=== PATIENT | female | born 2000 | race African-American/Black ===

== ENCOUNTER 2022-04-05 06:28 | Emergency (ER) | payer OTHER, SELFPAY ==
[2022-04-05 06:36] VITALS: BP 112/73; PULSE 79; RESP 19; TEMP 36.6; O2SAT 100
[2022-04-05] MEDS: AMOXICILLIN/CLAVULANATE K 875-125 MG TAB 1 TABLET PO (06:46)
--- NOTE | 2022-04-05 06:46 | ED.DENTAL ---
HPI - Dental/Oral General Chief complaint: Dental/Oral Stated complaint: tooth ache/swelling Time Seen by Provider: 04/05/22 06:33 History of Present Illness HPI Narrative: 21-year-old female presented the emergency department for evaluation of dental pain. Patient states that every few months she seems to have recurring dental pain. Patient states over the last 2 days she has had worsening left lower posterior dental pain. Patient is new to the area and does not yet have a dentist or primary care physician. Review of Systems Review of Systems: CONSTITUTIONAL: Denies fever, chills, or sweats. EYES: Denies visual changes, redness, or discharge. ENT: See HPI CARDIOVASCULAR: Denies chest pain, palpitations, or edema. RESPIRATORY: Denies cough or dyspnea. GASTROINTESTINAL: Denies abdominal pain, nausea, vomiting, or diarrhea. GENITOURINARY: Denies dysuria or hematuria. SKIN: Denies rash or itching. MUSCULOSKELETAL: Denies back pain, joint pain, or myalgia. NEUROLOGIC: Denies headache, numbness, or weakness. Exam Narrative: APPEARANCE: Well appearing, no pain, no distress, well-nourished. HEAD: normocephalic, atraumatic. EYES: PERRLA/EOMI, conjunctivae clear. NOSE: Normal no drainage EARS:TMS clear with good light reflex. THROAT: Pharynx clear, no exudate. Patient does appear to have wisdom teeth coming in on the left lower. No abscess amenable to drainage NECK: Supple. No adenopathy, no masses. RESPIRATORY: Airway patent, respirations nonlabored. Clear to auscultation bilaterally, no rales, rhonchi, wheezing. CARDIOVASCULAR: Regular rate and rhythm without murmurs rubs or gallops. ABDOMINAL: Soft, nontender, nondistended, normal bowel sounds MUSCULOSKELETAL: Moves all extremities. Strength/ROM intact, No edema, No calf tenderness. NEURO: Alert. Cranial nerves II through XII intact. Grossly intact SKIN: Warm, dry. Normal Color Course Course Emergency Course: Patient was started on antibiotics in the emergency room. Patient was also encouraged of close follow-up with a dentist. All question concerns were addressed. Patient was well-appearing at discharge. Vital Signs Vital signs: Vital Signs Temperature 97.8 F 04/05/22 06:36 Pulse Rate 79 04/05/22 06:36 Respiratory Rate 19 04/05/22 06:36 Blood Pressure 112/73 04/05/22 06:36 Pulse Oximetry 100 04/05/22 06:36 Oxygen Delivery Room Air 04/05/22 06:36 Temperature 97.8 F 04/05/22 06:36 Pulse Rate 79 04/05/22 06:36 Respiratory Rate 19 04/05/22 06:36 Blood Pressure 112/73 04/05/22 06:36 Pulse Oximetry 100 04/05/22 06:36 Oxygen Delivery Room Air 04/05/22 06:36 MDM - Dental/Oral Lab Data Labs: Lab Results 04/05/22 Range/Units 06:49 Hep Bs Antibody Positive Discharge Plan Discharge Clinical Impression: Toothache Patient Disposition: Home, Self-Care Condition: Stable Instructions: Antibiotic Form, Toothache (ED) Additional Instructions: Tylenol and ibuprofen for pain control. Antibiotic as directed. Have close follow-up with a dentist. If you have any worsening symptoms then please call or return to the emergency department. Prescriptions: New amoxicillin-pot clavulanate 875-125 mg tablet 1 tablet PO Q12H Qty: 14 0RF Follow-up/Referrals: Taye Santos, MYRAC [Primary Care Provider] -
[2022-04-05 10:50] LABS: Hepatitis B Surface Antibody > 1000.00 s/c
[2022-04-05 11:49] LABS: Hepatitis B Surface Anti Res Positive
== END 2022-04-05 07:12 | disposition home or self-care (01) ==
PROVIDERS: Emergency Provider Emergency Medicine; PCP Physician Assistant
DX: K08.89 Other specified disorders of teeth and supporting structures (principal)
CPT/HCPCS: 36415; 86706; 99283; A9270

== ENCOUNTER 2023-09-30 12:45 | Outpatient (CLI) | payer OTHER, SELFPAY ==
--- NOTE | ~2023-09-30 | US_ITS ---
EXAMINATION: US transvaginal DATE: 09/30/2023 13:26 INDICATION: Pelvic pain Comparison:No prior studies for comparison. TECHNIQUE: Multiple endovaginal sonographic images of the pelvis performed. FINDINGS: The uterus measures 7.4 x 3 x 5 cm. The endometrial complex measures 7 mm. The right ovary measures 3.6 x 1.5 x 2.7 cm and the left ovary measures 3.3 x 2.2 x 2.9 cm. There ar e small follicles in each ovary. There is a left ovarian cyst measuring 2.3 cm. Normal doppler signal in both ovaries. There is free fluid in the pelvis. There are no abnormal masses seen on either side. IMPRESSION: 1. Left ovarian cyst measuring 2.3 cm. Reviewed, dictated and finalized at location B.
== END 2023-09-30 12:46 | disposition home or self-care (01) ==
LOC: ANHIMG 12:47
PROVIDERS: PCP Physician Assistant; Visit Provider Obstetrics & Gynecology Gynecology
DX: R10.2 Pelvic and perineal pain (principal); N83.202 Unspecified ovarian cyst, left side
CPT/HCPCS: 76830

== ENCOUNTER 2024-06-14 17:02 | Emergency (ER) | payer OTHER, SELFPAY ==
[2024-06-14 17:14] VITALS: BP 126/80; PULSE 88; RESP 16; TEMP 36.7; O2SAT 100
--- NOTE | 2024-06-14 17:18 | ED.ABDPAIN ---
HPI - Abdominal Pain General Chief Complaint: Abdominal Pain <JAYANT Sebastian Last Filed: 06/14/24 17:26> Stated Complaint: nausea, cramps <JAYANT Sebastian Last Filed: 06/14/24 17:26> Time Seen by Provider: 06/14/24 17:18 <JAYANT Sebastian Last Filed: 06/14/24 17:26> Focused HPI: Patient is a 23 y/o female who presents to the ED with c/o lower abdominal cramping. Patient reports she was supposed to start her normal menstrual cycle on 05/31 but has not yet. Typically has regular menstrual cycles. Has taken to at home test which were both negative. She was referred to the ED by her OBGYN, Dr. Mcmahan, to have blood test. She has never been before. Has been feeling intermittently nauseous since end of May, began having some lower abdominal cramping last week. Denies dysuria, hematuria, any vaginal spotting. Denies vomiting, diarrhea. GENERAL: Well-appearing, well-nourished, and in no acute distress. HEAD: Normocephalic, atraumatic. CHEST: Clear to auscultation. ?No respiratory distress. HEART: Regular rate and rhythm.? ABD: Mild TTP in lower abdomen/suprapubic region. NEURO: ?Alert and oriented x3. Patient screened in triage and initial orders placed.? ?Additional care and disposition to be based upon?diagnostic testing and treatment. <JAYANT Sebastian Last Filed: 06/14/24 17:26> Source: patient <JAYANT Sebastian Last Filed: 06/14/24 17:26> Mode of arrival: ambulatory <JAYANT Sebastian Last Filed: 06/14/24 17:26> Limitations: no limitations <JAYANT Sebastian Last Filed: 06/14/24 17:26> History of Present Illness HPI narrative: Agree with the above triage note. Has been sexually active with 1 partner for the past 6 months. Denies vaginal discharge or concern for STDs. Denies focal abdominal pain. Is reporting intermittent diffuse lower abdominal cramping. <Nicol Kong PA-C - Last Filed: 06/14/24 19:43> Related Data Allergies/Adverse Reactions: Allergies Allergy/AdvReac Type Severity Reaction Status Date / Time No Known Allergies Allergy Verified 06/14/24 17:18 <Alia Ruano PA-C - Last Filed: 06/14/24 17:26> Review of Systems Review of Systems: All systems reviewed & are unremarkable except as noted in HPI and below <JAYANT Flanagan Last Filed: 06/14/24 19:43> Exam Narrative: GENERAL: Well-appearing, well-nourished, and in no acute distress. HEAD: Normocephalic, atraumatic. EYES: EOMI. ENT: Nares clear, no rhinorrhea or epistaxis. Mucous membranes moist. NECK: Supple. CHEST: Clear to auscultation. No respiratory distress. HEART: Regular rate and rhythm. No murmur heard. Normal peripheral pulses. ABDOMEN: Soft, nontender, nondistended, normal active bowel sounds. No CVA tenderness EXTREMITIES: Normal range of motion. No edema. SKIN: Warm, dry, no rash. NEURO: No focal deficits. Alert and oriented x3 <JAYANT Flanagan Last Filed: 06/14/24 19:43> Course Vital Signs Vital signs: Vital Signs Temperature 98.0 F 06/14/24 17:14 Pulse Rate 88 06/14/24 17:14 Respiratory Rate 16 06/14/24 17:14 Blood Pressure 126/80 06/14/24 17:14 Pulse Oximetry 100 06/14/24 17:14 Oxygen Delivery Room Air 06/14/24 17:14 Temperature 98.0 F 06/14/24 17:14 Pulse Rate 88 06/14/24 17:14 Respiratory Rate 16 06/14/24 17:14 Blood Pressure 126/80 06/14/24 17:14 Pulse Oximetry 100 06/14/24 17:14 Oxygen Delivery Room Air 06/14/24 17:14 <JAYANT Sebastian Last Filed: 06/14/24 17:26> Vital Signs Temperature 98.0 F 06/14/24 17:14 Pulse Rate 88 06/14/24 17:14 Respiratory Rate 16 06/14/24 17:14 Blood Pressure 126/80 06/14/24 17:14 Pulse Oximetry 100 06/14/24 17:14 Oxygen Delivery Room Air 06/14/24 17:14 Temperature 98.0 F 06/14/24 17:14 Pulse Rate 88 06/14/24 17:14 Respiratory Rate 16 06/14/24 17:14 Blood Pressure 126/80 06/14/24 17:14 Pulse Oximetry 100 06/14/24 17:14 Oxygen Delivery Room Air 06/14/24 17:14 <Nicol Kong PA-C - Last Filed: 06/14/24 19:43> MDM - Abdominal Pain MDM Narrative Medical decision making narrative: MSE by SHIRA in triage. <JAYANT Sebastian Last Filed: 06/14/24 17:26> MSE by SHIRA in triage. 23-year-old female presents to emergency department for missed. . Patient reportedly has regular cycles, was supposed to start her period on 05/31/2024. Referred to the ED to obtain a blood test by her OBGYN. Abdomen is soft and nontender. Lab work here is unremarkable. Beta hCG is negative. UA without infection. Patient was updated on workup. Discussed other etiologies of lower abdominal cramping such as GI etiology, ovarian cyst, ovarian torsion, etc.. Very low suspicion for ovarian torsion or acute abdomen given she is resting very comfortably in exam bed with no abdominal tenderness on exam. Shared decision making regarding further workup including CT abdomen pelvis and pelvic ultrasound. Patient would like to defer further workup today and feels safe to discharge home with close follow-up with her OBGYN. She was given return precautions. Zofran sent to pharmacy for nausea. Patient is agreeable with the plan verbalized understanding. Discharged in stable condition. <Nicol Kong PA-C - Last Filed: 06/14/24 19:43> Lab Data Result diagrams: 06/14/24 18:35 06/14/24 18:35 <JAYANT Sebastian Last Filed: 06/14/24 17:26> Labs: Lab Results 06/14/24 06/14/24 Range/Units 17:29 18:35 WBC 8.8 (4.5-10.0) K/mm3 RBC 4.06 L (4.2-5.4) M/mm3 Hgb 12.5 (12.0-15.0) g/dL Hct 37.7 (37.0-47.0) % MCV 92.9 (80-100) fl MCH 30.8 (26-34) pg MCHC 33.2 (32-36) g/dl RDW 12.3 (11.5-14.5) % Plt Count 151 (150-375) k/mm3 MPV 12.4 H (7.4-10.4) fl Immature Gran % (Auto) 0.2 (0-0.5) % Neut % (Auto) 54.0 (45.5-73.1) % Lymph % (Auto) 37.3 (18.3-44.2) % [place] % (Auto) 7.4 (2.6-8.5) % Eos % (Auto) 0.6 (0-4.4) % Baso % (Auto) 0.5 (0.2-1.2) % Lymph # (Auto) 3.28 H (0.9-3.2) K/mm3 [place] # (Auto) 0.7 H (0.1-0.6) K/mm3 Eos # (Auto) 0.1 (0-0.3) K/mm3 Baso # (Auto) 0.0 (0.0-0.1) K/mm3 Abs Immat Gran (auto) 0.02 (0.00-0.031) K/mm3 Absolute Neuts (auto) 4.8 (1.3-6.7) K/mm3 Absolute Nucleated RBC 0.000 (0.0-0.012) K/mm3 Nucleated RBC % 0.0 (0.0-0.2) % PT 14.1 (11.1-14.7) Seconds INR 1.0 APTT 35.0 (22.3-36.8) Seconds Sodium 138 (137-145) mmol/L Potassium 3.9 (3.4-5.0) mmol/L Chloride 104 (98-107) mmol/L Carbon Dioxide 25 (22-30) mmol/L Anion Gap 9 (4-12) mmol/L BUN 16 (7-17) mg/dL Creatinine 0.61 L (0.7-1.0) mg/dL Estim Creat Clear Calc 103 ml/min Estimated GFR > 60 (59 - ) Glucose 79 (65-110) mg/dL Calcium 9.7 (8.4-10.2) mg/dL Total Bilirubin 0.7 (0.2-1.3) mg/dL AST 27 (14-36) U/L ALT 16 (6-35) U/L Alkaline Phosphatase 45 (38-126) U/L Total Protein 8.0 (6.3-8.2) g/dL Albumin 4.9 (3.5-5.1) g/dL Beta HCG, Quant < 2.39 mIU/ML Urine Color Yellow (Yellow) Urine Appearance Clear (Clear) Urine pH 6.0 (5.0-9.0) Ur Specific [place] 1.035 (1.001-1.035) Urine Protein Trace (Negative) mg/dL Urine Glucose (UA) Negative (Negative) mg/dL Urine Ketones 1+ H (Negative) mg/dL Ur Blood (Man) Negative (Negative) Urine Nitrate Negative (Negative) Urine Bilirubin Negative (Negative) Urine Urobilinogen 0.2 (<2.0) mg/dL Add Ur Microanalysis Reviewed Leukocyte Esterase Rfl Negative (Negative) EDMUNDO/UL Urine RBC 0-2 (0-2) /hpf Urine WBC 0-5 (0-3) /hpf Ur Squamous Epith Cells None seen (Few) /hpf Urine Bacteria 1+ H /hpf Urine Casts 3-5 POC Urine HCG, Qual Negative (Negative) Blood Type O Positive Antibody Screen Negative Screen TNP Baby's Blood Type Not Reportable Baby's FARTUN Not Reportable Doses of RhIg Required Pending <Alia Ruano PA-C - Last Filed: 06/14/24 17:26> Lab Results 06/14/24 06/14/24 Range/Units 17:29 18:35 WBC 8.8 (4.5-10.0) K/mm3 RBC 4.06 L (4.2-5.4) M/mm3 Hgb 12.5 (12.0-15.0) g/dL Hct 37.7 (37.0-47.0) % MCV 92.9 (80-100) fl MCH 30.8 (26-34) pg MCHC 33.2 (32-36) g/dl RDW 12.3 (11.5-14.5) % Plt Count 151 (150-375) k/mm3 MPV 12.4 H (7.4-10.4) fl Immature Gran % (Auto) 0.2 (0-0.5) % Neut % (Auto) 54.0 (45.5-73.1) % Lymph % (Auto) 37.3 (18.3-44.2) % [place] % (Auto) 7.4 (2.6-8.5) % Eos % (Auto) 0.6 (0-4.4) % Baso % (Auto) 0.5 (0.2-1.2) % Lymph # (Auto) 3.28 H (0.9-3.2) K/mm3 [place] # (Auto) 0.7 H (0.1-0.6) K/mm3 Eos # (Auto) 0.1 (0-0.3) K/mm3 Baso # (Auto) 0.0 (0.0-0.1) K/mm3 Abs Immat Gran (auto) 0.02 (0.00-0.031) K/mm3 Absolute Neuts (auto) 4.8 (1.3-6.7) K/mm3 Absolute Nucleated RBC 0.000 (0.0-0.012) K/mm3 Nucleated RBC % 0.0 (0.0-0.2) % PT 14.1 (11.1-14.7) Seconds INR 1.0 APTT 35.0 (22.3-36.8) Seconds Sodium 138 (137-145) mmol/L Potassium 3.9 (3.4-5.0) mmol/L Chloride 104 (98-107) mmol/L Carbon Dioxide 25 (22-30) mmol/L Anion Gap 9 (4-12) mmol/L BUN 16 (7-17) mg/dL Creatinine 0.61 L (0.7-1.0) mg/dL Estim Creat Clear Calc 103 ml/min Estimated GFR > 60 (59 - ) Glucose 79 (65-110) mg/dL Calcium 9.7 (8.4-10.2) mg/dL Total Bilirubin 0.7 (0.2-1.3) mg/dL AST 27 (14-36) U/L ALT 16 (6-35) U/L Alkaline Phosphatase 45 (38-126) U/L Total Protein 8.0 (6.3-8.2) g/dL Albumin 4.9 (3.5-5.1) g/dL Beta HCG, Quant < 2.39 mIU/ML Urine Color Yellow (Yellow) Urine Appearance Clear (Clear) Urine pH 6.0 (5.0-9.0) Ur Specific [place] 1.035 (1.001-1.035) Urine Protein Trace (Negative) mg/dL Urine Glucose (UA) Negative (Negative) mg/dL Urine Ketones 1+ H (Negative) mg/dL Ur Blood (Man) Negative (Negative) Urine Nitrate Negative (Negative) Urine Bilirubin Negative (Negative) Urine Urobilinogen 0.2 (<2.0) mg/dL Add Ur Microanalysis Reviewed Leukocyte Esterase Rfl Negative (Negative) EDMUNDO/UL Urine RBC 0-2 (0-2) /hpf Urine WBC 0-5 (0-3) /hpf Ur Squamous Epith Cells None seen (Few) /hpf Urine Bacteria 1+ H /hpf Urine Casts 3-5 POC Urine HCG, Qual Negative (Negative) Blood Type O Positive Antibody Screen Negative Screen TNP Baby's Blood Type Not Reportable Baby's FARTUN Not Reportable Doses of RhIg Required Pending <Nicol Kong PA-C - Last Filed: 06/14/24 19:43> Discharge Plan Discharge Clinical Impression: Missed period <JAYANT Sebastian Last Filed: 06/14/24 17:26> Patient Disposition: Home, Self-Care <JAYANT Sebastian Last Filed: 06/14/24 17:26> Condition: Stable <JAYANT Sebastian Last Filed: 06/14/24 17:26> Instructions: Antibiotic Form <JAYANT Sebastian Last Filed: 06/14/24 17:26> Additional Instructions: Your evaluated in the emergency department for a missed period. Her test is negative. Please follow-up with your OBGYN. Return to the emergency department if you develop focal abdominal pain, fever, burning with urination, vaginal discharge or other concerning symptoms. <Alia Ruano PA-C - Last Filed: 06/14/24 17:26> Patient Language: Kiswahili <Alia Ruano PA-C - Last Filed: 06/14/24 17:26> Prescriptions: New ondansetron 4 mg tablet,disintegrating 4 mg PO Q8H Qty: 14 0RF No Action amoxicillin-pot clavulanate 875-125 mg tablet 1 tablet PO Q12H Qty: 14 0RF <Alia Ruano PA-C - Last Filed: 06/14/24 17:26> Follow-up/Referrals: Payton Mcmahan MD [Physician] - Taye Santos PA-C [Primary Care Provider] - <Alia Ruano PA-C - Last Filed: 06/14/24 17:26>
[2024-06-14 17:30] LABS: BEDSIDEPREGUCG Negative (Negative)
[2024-06-14 18:43] LABS: Basophils Percent Auto 0.5 % (0.2-1.2); Eosinophils Absolute Auto 0.1 K/mm3 (0-0.3); Eosinophils Percent Auto 0.6 % (0-4.4); Hematocrit 37.7 % (37.0-47.0); Hemoglobin 12.5 g/dL (12.0-15.0); Immature Granulocyte Absolute 0.02 K/mm3 (0.00-0.031); Immature Granulocyte Percent A 0.2 % (0-0.5); Lymphocytes Absolute Auto 3.28 K/mm3 (0.9-3.2); Lymphocytes Percent Auto 37.3 % (18.3-44.2); Mean Corpuscular HGB Conc 33.2 g/dl (32-36); Mean Corpuscular Hemoglobin 30.8 pg (26-34); Mean Corpuscular Volume 92.9 fl (80-100); Mean Platelet Volume 12.4 fl (7.4-10.4); Monocytes Absolute Auto 0.7 K/mm3 (0.1-0.6); Monocytes Percent Auto 7.4 % (2.6-8.5); Neutrophils Absolute Auto 4.8 K/mm3 (1.3-6.7); Platelet Count Result 151 k/mm3 (150-375); Red Blood Count 4.06 M/mm3 (4.2-5.4); Red Cell Distribution Width 12.3 % (11.5-14.5); White Blood Count 8.8 K/mm3 (4.5-10.0)
[2024-06-14 18:53] LABS: Prothrombin Time 14.1 Seconds (11.1-14.7)
[2024-06-14 18:55] LABS: Alanine Aminotransferase 16 U/L (6-35); Albumin Level 4.9 g/dL (3.5-5.1); Alkaline Phosphatase 45 U/L (38-126); Anion Gap 9 mmol/L (4-12); Aspartate Amino Transferase 27 U/L (14-36); Bilirubin,Total 0.7 mg/dL (0.2-1.3); Blood Urea Nitrogen 16 mg/dL (7-17); Calcium 9.7 mg/dL (8.4-10.2); Carbon Dioxide 25 mmol/L (22-30); Chloride 104 mmol/L (98-107); Estimated CRCL calculation 103 ml/min; Estimated Glomerular Filt Rate > 60; Glucose 79 mg/dL (65-110); Potassium 3.9 mmol/L (3.4-5.0); Sodium 138 mmol/L (137-145)
[2024-06-14 19:00] LABS: Add Urine Microscopic? YES; Appearance Urine Clear (Clear); Bacteria Urine 1+ /hpf; Bilirubin Urine Negative (Negative); Blood Urine Negative (Negative); Color Urine Yellow (Yellow); Glucose Urine UA Negative (Negative); Ketones Urine 1+ mg/dL (Negative); Leukocyte Esterase Ur Negative LEU/UL (Negative); Need Manual Microscopic Reviewed; Nitrate Urine Negative (Negative); Protein Urine Trace mg/dL (Negative); RBC Urine 0-2 /hpf (0-2); Specific Grav Ur 1.035 (1.001-1.035); Squamous Epithelial Cell Urine None Seen /hpf (Few); Urobilinogen Urine 0.2 mg/dL (<2.0); WBC Urine 0-5 /hpf (0-3)
[2024-06-14 19:11] LABS: Beta HCG Quantitative < 2.39 mIU/ML
== END 2024-06-14 20:02 | disposition home or self-care (01) ==
LOC: ANHED 19:40
PROVIDERS: Physician Assistant; Emergency Provider Physician Assistant; PCP Physician Assistant
DX: N91.2 Amenorrhea, unspecified (principal)
CPT/HCPCS: 36415; 80053; 81001; 81025; 84702; 85025; 85461; 85610; 85730; 86850; 86900; 86901; 99283

== ENCOUNTER 2025-02-11 09:27 | Emergency (ER) | payer OTHER, SELFPAY ==
[2025-02-11 09:32] VITALS: BP 107/74; PULSE 70; RESP 16; TEMP 37.2; O2SAT 100
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
[2025-02-11] MEDS: SILVER SULFADIAZINE 1% CR 50 GM JAR (*BKC) 1 APPLIC TOPICAL (10:12)
[2025-02-11 10:17] VITALS: BP 110/72; PULSE 75; RESP 15; O2SAT 100
== END 2025-02-11 10:22 | disposition home or self-care (01) ==
PROVIDERS: Emergency Provider Physician Assistant
DX: T23.602A Corrosion of second degree of left hand, unspecified site, initial encounter (principal)
CPT/HCPCS: 16000; 99283; A9270

== ENCOUNTER 2025-04-09 11:26 | Emergency (ER) | payer OTHER, SELFPAY ==
[2025-04-09 11:31] VITALS: BP 121/84; PULSE 90; RESP 18; TEMP 36.8; O2SAT 100
[2025-04-09 12:04] LABS: Hematocrit 39.6 % (37.0-47.0); Hemoglobin 12.8 g/dL (12.0-15.0); Immature Granulocyte Percent A 0.5 % (0-0.5); Lymphocytes Absolute Auto 2.51 K/mm3 (0.9-3.2); Mean Corpuscular HGB Conc 32.3 g/dl (32-36); Mean Corpuscular Hemoglobin 31.8 pg (26-34); Mean Corpuscular Volume 98.3 fl (80-100); Nucleated Red Blood Cells Absolute Auto 0.000 K/mm3 (0.0-0.012); Nucleated Red Blood Cells Perc 0.0 % (0.0-0.2); Platelet Count Result 145 k/mm3 (150-375); Red Blood Count 4.03 M/mm3 (4.2-5.4); White Blood Count 10.0 K/mm3 (4.5-10.0)
[2025-04-09 12:09] LABS: Add Urine Microscopic? NO; Appearance Urine Clear (Clear); Glucose Urine UA Negative (Negative); Leukocyte Esterase Ur Negative LEU/UL (Negative); Nitrate Urine Negative (Negative); Specific Grav Ur 1.021 (1.001-1.035)
[2025-04-09 12:24] LABS: Acetaminophen < 10 ug/mL (10-30); Alanine Aminotransferase 26 U/L (6-35); Albumin Level 3.6 g/dL (3.5-5.1); Alkaline Phosphatase 31 U/L (38-126); Anion Gap 2 mmol/L (4-12); Aspartate Amino Transferase 42 U/L (14-36); Bilirubin,Total 0.3 mg/dL (0.2-1.3); Blood Urea Nitrogen 19 mg/dL (7-17); Calcium 8.7 mg/dL (8.4-10.2); Carbon Dioxide 28 mmol/L (22-30); Chloride 105 mmol/L (98-107); Estimated CRCL calculation 87 ml/min; Estimated Glomerular Filt Rate > 60; Glucose 83 mg/dL (65-110); Potassium 4.4 mmol/L (3.4-5.0); Salicylate < 1.0 mg/dL (2-20); Sodium 135 mmol/L (137-145); Total Protein 6.0 g/dL (6.3-8.2)
[2025-04-09 12:28] LABS: Cannabinoid Screen Urine Positive (Negative)
[2025-04-09 12:41] LABS: SARS-CoV-2 RNA PCR Negative (Negative)
[2025-04-09 12:53] LABS: Beta HCG Quantitative < 2.39 mIU/ML
[2025-04-09 13:00] LABS: Thyroid Stimulating Hormone 1.800 uIU/mL (0.465-4.680)
--- NOTE | 2025-04-09 14:16 | ED.PSYCH ---
HPI - Psych General Chief Complaint: Psychiatric Symptoms Stated Complaint: SI w/ plan Time Seen by Provider: 04/09/25 11:36 History of Present Illness HPI Narrative: Patient is a 24-year-old female who presents ER with depression and thoughts of not wanting to wake up in live life. She was in a verbal altercation with her mother about the dog getting out of the home 30 minutes prior to arrival here. She reports she has long struggled with anxiety and depression. Compliant with home medications. She does take lithium. No fevers or chills or sweats. Has history of cutting in the past. She is perform no self-harm actions today. No use of intoxicants today. Does have history of marijuana use. Reports she does not have another home to go live in because she is not make money to pay her own rent that she has to live with her mom. Related Data Allergies Allergy/AdvReac Type Severity Reaction Status Date / Time No Known Allergies Allergy Verified 02/11/25 09:28 Review of Systems Review of Systems: All systems reviewed & are unremarkable except as noted in HPI and below Constitutional: Constitutional: Reports no additional constitutional complaints Cardiovascular: Cardiovascular: Reports no additional cardiovascular complaints Respiratory: Respiratory: Reports no additional respiratory complaints Gastrointestinal: Gastrointestinal: Reports no additional gastrointestinal complaints Psychiatric: Psychiatric: Reports anxiety, Reports depression, Denies homicidal ideation and Reports suicidal ideation PMFSH Past Medical History Medical History (Updated 04/09/25 @ 14:29 by Jered Pizano MD) Anxiety Depression Surgical History Surgical History (Updated 04/09/25 @ 14:19 by Jered Pizano MD) No history of previous surgery Social History Social History Substance use type: does not use Exam Narrative: GENERAL: Well-appearing, well-nourished, and in no acute distress. HEAD: Normocephalic, atraumatic. ENT: Mucous membranes moist. NECK: Supple. CHEST: Clear to auscultation. No respiratory distress. HEART: Regular rate and rhythm. Normal peripheral pulses. ABDOMEN: Soft, nontender, nondistended. EXTREMITIES: Normal range of motion. No edema. SKIN: Warm, dry, no rash. NEURO:Alert and oriented x3. PSYCH: Normal mood and affect. Course Course Emergency Course: The patient was medically cleared for crisis evaluation. 1424: Crisis is been out to see the patient. She has been screened and they have formulated a plan for safety. She will be discharged home. Vital Signs Vital signs: Vital Signs Temperature 98.2 F 04/09/25 11:31 Pulse Rate 90 04/09/25 11:31 Respiratory Rate 18 04/09/25 11:31 Blood Pressure 121/84 04/09/25 11:31 Pulse Oximetry 100 04/09/25 11:31 Oxygen Delivery Room Air 04/09/25 11:31 Temperature 98.2 F 04/09/25 11:31 Pulse Rate 90 04/09/25 11:31 Respiratory Rate 18 04/09/25 11:31 Blood Pressure 121/84 04/09/25 11:31 Pulse Oximetry 100 04/09/25 11:31 Oxygen Delivery Room Air 04/09/25 11:31 MDM - Psych Lab Data 04/09/25 11:54 04/09/25 11:54 Labs: Lab Results 04/09/25 04/09/25 Range/Units 11:54 12:01 WBC 10.0 (4.5-10.0) K/mm3 RBC 4.03 L (4.2-5.4) M/mm3 Hgb 12.8 (12.0-15.0) g/dL Hct 39.6 (37.0-47.0) % MCV 98.3 (80-100) fl MCH 31.8 (26-34) pg MCHC 32.3 (32-36) g/dl RDW 12.7 (11.5-14.5) % Plt Count 145 L (150-375) k/mm3 MPV 11.7 H (7.4-10.4) fl Immature Gran % (Auto) 0.5 (0-0.5) % Neut % (Auto) 66.5 (45.5-73.1) % Lymph % (Auto) 25.1 (18.3-44.2) % [place] % (Auto) 6.4 (2.6-8.5) % Eos % (Auto) 1.2 (0-4.4) % Baso % (Auto) 0.3 (0.2-1.2) % Lymph # (Auto) 2.51 (0.9-3.2) K/mm3 [place] # (Auto) 0.6 (0.1-0.6) K/mm3 Eos # (Auto) 0.1 (0-0.3) K/mm3 Baso # (Auto) 0.0 (0.0-0.1) K/mm3 Abs Immat Gran (auto) 0.05 H (0.00-0.031) K/mm3 Absolute Neuts (auto) 6.7 (1.3-6.7) K/mm3 Absolute Nucleated RBC 0.000 (0.0-0.012) K/mm3 Nucleated RBC % 0.0 (0.0-0.2) % Sodium 135 L (137-145) mmol/L Potassium 4.4 (3.4-5.0) mmol/L Chloride 105 (98-107) mmol/L Carbon Dioxide 28 (22-30) mmol/L Anion Gap 2 L (4-12) mmol/L BUN 19 H (7-17) mg/dL Creatinine 0.72 (0.7-1.0) mg/dL Estim Creat Clear Calc 87 ml/min Estimated GFR > 60 (59 - ) Glucose 83 (65-110) mg/dL Calcium 8.7 (8.4-10.2) mg/dL Total Bilirubin 0.3 (0.2-1.3) mg/dL AST 42 H (14-36) U/L ALT 26 (6-35) U/L Alkaline Phosphatase 31 L (38-126) U/L Total Protein 6.0 L (6.3-8.2) g/dL Albumin 3.6 (3.5-5.1) g/dL TSH 1.800 (0.465-4.680) uIU/mL Beta HCG, Quant < 2.39 mIU/ML Urine Color Yellow (Yellow) Urine Appearance Clear (Clear) Urine pH 6.5 (5.0-9.0) Ur Specific [place] 1.021 (1.001-1.035) Urine Protein Negative (Negative) mg/dL Urine Glucose (UA) Negative (Negative) mg/dL Urine Ketones Negative (Negative) mg/dL Ur Blood (Man) Negative (Negative) Urine Nitrate Negative (Negative) Urine Bilirubin Negative (Negative) Urine Urobilinogen 0.2 (<2.0) mg/dL Leukocyte Esterase Rfl Negative (Negative) EDMUNDO/UL Salicylates < 1.0 L (2-20) mg/dL Urine Opiates Screen Negative (Negative) Urine Methadone Screen Negative (Negative) Acetaminophen < 10 L (10-30) ug/mL Ur Barbiturates Screen Negative (Negative) Ur Phencyclidine Scrn Negative (Negative) Ur Amphetamine Screen Negative (Negative) U Benzodiazepines Scrn Negative (Negative) Urine Cocaine Screen Negative (Negative) U Cannabinoids Screen Positive A (Negative) Ethyl Alcohol < 10 (<10) mg/dL SARS-CoV-2 RNA (RT-PCR) Negative (Negative) Discharge Plan Discharge Clinical Impression: Depression Patient Disposition: Home Condition: Stable Instructions: Depression (ED) Additional Instructions: Return the ER if you are having thoughts of harming herself or others, you do not feel safe at home, or you have additional concerns. Patient Language: Syriac Prescriptions: No Action ondansetron 4 mg tablet,disintegrating 4 mg PO Q8H Qty: 14 0RF silver sulfadiazine 1 % cream 1 applic topical BID PRN (Reason: wound healing) Qty: 20 0RF Rx Instructions: apply a 1.5 mm thickness amoxicillin-pot clavulanate 875-125 mg tablet 1 tablet PO Q12H Qty: 14 0RF Follow-up/Referrals: [facility] [Outside] - 1 Week UNKNOWN,DOCTOR [Primary Care Provider]
== END 2025-04-09 14:42 | disposition home or self-care (01) ==
PROVIDERS: Emergency Provider Emergency Medicine
DX: F32.A Depression, unspecified (principal); Z11.52 Encounter for screening for COVID-19
CPT/HCPCS: 36415; 80053; 80143; 80179; 80307; 81003; 82077; 84443; 84702; 85025; 87635; 99284